=== PATIENT | female | born 1960 | race Caucasian/White ===

== ENCOUNTER 2017-10-19 19:17 | Inpatient (IN) | payer OTHER ==
[~2017-10-19] VITALS: Ht 165.1 cm; Wt 55.8 kg
--- NOTE | 2017-10-19 20:07 | ED GENERAL ADULT ---
History of Present Illness General Chief Complaint: General Adult Stated Complaint: SIB MD BARRETO HIGH BP, DAVIS X 2 WEEKS, EAR PAIN Source: patient Exam Limitations: no limitations Vital Signs & Intake/Output Vital Signs & Intake/Output Vital Signs Date Time Temp Pulse Resp B/P B/P Pulse O2 O2 Flow FiO2 Mean Ox Delivery Rate 10/20 0159 98.2 58 18 142/76 96 Room Air 10/20 0147 98.2 58 18 142/76 10/20 0118 97.1 50 20 161/74 95 Room Air 10/19 2142 56 138/64 10/19 1939 98.8 62 16 199/117 97 Room Air Allergies Coded Allergies: acetaminophen (From DARVOCET-N 100) (UNKNOWN 10/19/17) irbesartan (UNKNOWN 10/19/17) meperidine (UNKNOWN 10/19/17) propoxyphene (From DARVOCET-N 100) (UNKNOWN 10/19/17) Triage Note: PT REFERRED TO ED FROM DR CABRAL OFFICE FOR C/O SEVERE HEADACHE, MUFFLED HEARING X 2 WEEKS. WAS SCHEDULED FOR OUT PT HEAD CT WHICH SHE FAILED TO HAVE DONE. BP ELEVATED 199/117 IN TRIAGE. ELEVATED IN MD OFFICE WELL. DENIES VISUAL CHANGES. ALSO C/O NECK PAIN. FACIAL SYMMETRY AND BILATERAL EQUAL HAND GRASP PRESENT IN TRIAGE. Triage Nurses Notes Reviewed? yes HPI: This is a 49-year-old female with history of hypertension, hyperlipidemia, anxiety, chronic back pain, presented to the emergency department with 10 days of severe headache and neck pain. Patient states that the pain started abruptly about 10 days ago while she was with her father in the hospital. She describes the pain as severe, the worst headache of her life, diffuse, associated with photophobia and nausea with vomiting initially. Since that time the pain is been unresponsive to OTC medications including Excedrin and ibuprofen. She was also tried on a Medrol Dosepak by her PMD. She denies any fever or chills or visual disturbance or lightheadedness or dizziness or confusion. She has had no sick contacts no recent travel or trauma or illness otherwise. (Jose Manuel PEREZ,Jalil) Past History Travel History Traveled to [place] past 21 day No Medical History Any Pertinent Medical History? see below for history Cardiovascular: hypertension, hyperlipidemia Gastrointestinal: GERD Musculoskeletal: pain management Psychiatric: anxiety Surgical History Surgical History: non-contributory Psychosocial History What is your primary language Yemeni Tobacco Use: Current Daily Use Daily Tobacco Use Amount/Type: => 5 Cigarettes daily ETOH Use: heavy use Family History Hx Contributory? No (Jalil Richard MD) Review of Systems Review of Systems Constitutional: Reports: no symptoms. EENTM: Reports: see HPI. Respiratory: Reports: no symptoms. Cardiovascular: Reports: no symptoms. GI: Reports: no symptoms. Neurological/Psychological: Reports: see HPI. All Other Systems: Reviewed and Negative (Jalil Richard MD) Physical Exam Physical Exam General Appearance: well developed/nourished, no apparent distress, alert, awake , anxious, mild distress Comments: Mildly distressed 49-year-old woman, severe discomfort. Positive nuchal rigidity. Negative Kernig and Brudzinski sign. Eyes are PERRLA, extraocular muscles intact, cranial nerves II through XII intact, no focal neurologic deficits on sensory or motor exam. No noted discoordination. She is alert and oriented 4. GCS 15. Cardiopulmonary exam within normal limits. Abdominal exam benign. Extremity exam benign. Core Measures ACS in differential dx? No CVA/TIA Diagnosis: No Sepsis Present: No Sepsis Focused Exam Completed? No (Jalil Richard MD) Progress Differential Diagnoses I considered the following diagnoses in my evaluation of the patient: Some concern for subarachnoid hemorrhage in this patient given exam, history, and presentation. Also concern for meningitis, however bacterial meningitis of 10 day duration would be highly unlikely. Could be primary headache such as tension headache or migraine. Low suspicion for acute mass effect lesion given history and exam features. Encephalitis is possible, as is giant cell arteritis. Plan of Care: Orders Procedure Date/time Status CBC WITHOUT DIFFERENTIAL 10/21 599 Active BASIC ELECTROLYTES PLUS BUN&CR 10/21 599 Active Regular Diet 10/20 B Active Weight 10/21 147 Active Vital Signs 10/21 147 Active Teach/Educate 10/21 147 Active Pain Treatment and Response 10/21 147 Active Nutritional Intake, Monitor 10/21 147 Active Isolation 10/21 147 Active Intake & Output 10/21 147 Active Patient Care Conference 10/21 147 Active Activity/Ambulation 10/21 147 Active Intake & Output 10/20 117 Active Pathway - chart 10/20 8 Active House Staff 10/20 8 Active Patient Data 10/20 8 Active Code Status 09/05 0009 Active Lab Add-on Test 10/20 UNK Active VTE Mechanical Prophylaxis 10/20 UNK Active CIWA 10/20 UNK Active MISSING MEDICATION FORM 10/20 UNK Active Saline Lock 10/19 2351 Active Misc Message 10/19 2351 Active ED Holding Orders 10/19 235 Active Admit to inpatient 10/19 235 Active Vital Signs 10/19 235 Active Code Status 10/19 2351 Complete LYME-CEREBROSPINAL FLUID Ref$ 10/19 2244 Active HERPES SIMPLEX VIRUS CSF 10/19 2244 Active Add-on Test (ER Only) 10/20 2055 Active Saline Lock 10/20 2047 Active ED- NURSING MISC 10/20 2047 Active CEREBROSPINAL FLUID CULTURE 10/20 2047 Active CYTOLOGY SPECIMEN 10/20 2047 Active CSF TOTAL PROTEIN 10/20 2047 Complete CEREBROSPINAL FL CELL CT 10/20 2047 Complete CSF GLUCOSE 10/20 2047 Complete HIGH SENSITIVITY CRP 10/20 2027 Complete WESTERGREN SED RATE 10/20 2027 Complete PROTHROMBIN TIME 10/20 2019 Complete COMPREHENSIVE METABOLIC PANEL 10/20 2019 Complete CBC WITHOUT DIFFERENTIAL 10/20 2019 Complete Current Medications Sig/Neelima Start time Last Medication Dose Stop Time Status Admin Acyclovir 800 MG Q8H 10/20 0030 AC 10/20 (Zovirax) 0110 Dextrose/Water 250 ML (D5W) Laboratory Tests 10/19/172244: CSF Glucose 43, CSF Total Protein 131 H 10/19/172244: Lymphocytes 91, % Normal PMNs 2, Misc Hematology Test , Ref Lab Test Result Pending, CSF WBC 31 *H, CSF RBC 352 H, CSF Comment , Lyme Specimen Source Pending, Lyme Disease DNA (PCR) Pending, CMV Specimen Source Pending, CMV DNA PCR log IU/mL Pending, CMV DNA PCR IU/mL Pending, Herpes Simplex Source Pending, HSV I DNA PCR Pending, HSV II DNA PCR Pending 10/19/172043: C-React Prot High Sens Cancelled, ESR Westergren Cancelled 10/19/172027: Anion Gap 8, Estimated GFR > 60, BUN/Creatinine Ratio 25.0, Glucose 93, Calcium 9.7, Total Bilirubin 0.6, AST 16, ALT 19, Alkaline Phosphatase 90, C-React Prot High Sens 0.2 L, Total Protein 6.7, Albumin 4.2, Globulin 2.5, Albumin/Globulin Ratio 1.7, PT 11.3, INR 1.04, CBC w Diff NO MAN DIFF REQ, RBC 4.27, MCV 94.5, MCH 32.2 H, MCHC 34.1, RDW 13.7, MPV 7.2 L, Gran % 52.4, Lymphocytes % 37.6, Monocytes % 7.9, Eosinophils % 1.6, Basophils % 0.5, Absolute Granulocytes 4.6, Absolute Lymphocytes 3.3, Absolute Monocytes 0.7 H, Absolute Eosinophils 0.1, Absolute Basophils 0, ESR [facility] 5 Microbiology 10/195 CENT N S: CSF Culture - RES 10/19 2244 CENT N S: Gram Stain - RES Plan for lumbar puncture with CSF studies, CTA head and neck, labs including ESR and CRP, pain control, reassessment. Lumbar puncture is performed with standard spinal needle following infiltration of 10 cc of 1% lidocaine. Patient placed in left lateral decubitus position, opening pressure 17; the L4-L5 space is utilized. Pressure dressing placed. Patient tolerates procedure well with no complications. CSF study consistent with viral meningitis. No indication for antibiotics at this time. Patient continues to be uncomfortable, will be admitted to medicine service for further management. Continue to await findings of CTA head and neck. CTA wet read shows likely incidental aneurysm with some possible vasospasm/ leptomeningeal enhancement. Radiologist recommends MRI/MRA for further characterization. Patient made aware of finding, on reassessment continues to have no acute neurologic deficits, particularly no deficits to the MCA territory on exam. Finding also discussed with on-call MOD. Care signed out to Dr. Reveles. Initial ED EKG: none (Jalil Richard MD) Departure Departure Time of Disposition: 0000 Disposition: STILL A PATIENT Condition: Stable Clinical Impression Primary Impression: Viral meningitis Secondary Impressions: Brain aneurysm Referrals: Anabela PEREZ,Jazmin (PCP/Family) Departure Forms: Customer Survey General Discharge Information Admission Note Spoke With: Nirmal Loredo MD Documentation of Exam: Documentation of any treatments & extenuating circumstances including Concerns Regarding Discharge (functional status, medication knowledge or non-compliance, living conditions, etc.) that warrant an admission rather than observation: IV acyclovir, MRI/MRA, pain control (Jalil Richard MD) PA/BLUEPRINT DUPLICATOR Co-Sign Statement Statement: ED Attending supervision documentation- [] I saw and evaluated the patient. I have also reviewed all the pertinent lab results and diagnostic results. I agree with the findings and the plan of care as documented in the PA's/BLUEPRINT DUPLICATOR's documentation. [x] I have reviewed the ED Record and agree with the MD's documentation. [] Additions or exceptions (if any) to the PAs/BLUEPRINT DUPLICATOR's note and plan are summarized below: [] (Anushka PEREZ,Vinny Palmer) Critical Care Note Critical Care Note Critical Care Time: non-applicable (Jose Manuel PEREZ,Jalil)
[2017-10-19 20:40] LABS: ABSOLUTE BASOPHIL COUNT 0 /CUMM (0.0-0.2); ABSOLUTE EOSINOPHIL COUNT 0.1 /CUMM (0.0-0.7); ABSOLUTE GRANULOCYTE CT 4.6 /CUMM (1.4-6.5); ABSOLUTE LYMPH COUNT 3.3 /CUMM (1.2-3.4); ABSOLUTE MONOCYTE COUNT 0.7 /CUMM (0.10-0.60); BASOPHIL % 0.5 % (0.0-2.0); EOSINOPHIL % 1.6 % (0-5); GRANULOCYTE % 52.4 % (42.2-75.2); HEMATOCRIT 40.3 % (37-47); MEAN CORPUSCULAR HGB 32.2 PG (27.0-31.0); MEAN CORPUSCULAR HGB CONC 34.1 G/DL (33.0-37.0); MEAN CORPUSCULAR VOLUME 94.5 FL (81.0-99.0); MEAN PLATELET VOLUME 7.2 FL (7.4-10.4); PLATELET COUNT 309 /CUMM (130-400); RBC DISTRIBUTION WIDTH 13.7 % (11.5-14.5); RED BLOOD CELL CT 4.27 /CUMM (4.20-5.40); WHITE BLOOD CELL COUNT 8.8 /CUMM (4.8-10.8)
[2017-10-19 20:49] LABS: PT 11.3 SEC (9.4-12.5)
--- NOTE | 2017-10-20 00:07 | History & Physical ---
Cheryl PEREZ,[facility] [place] 10/20/17 0006: General Information and HPI MD Statement: I have seen and personally examined MAURISIO SALINAS and documented this H&P. The patient is a 57 year old F who presented with a patient stated chief complaint of [headache, hearing changes]. Source of Information: patient Exam Limitations: clinical condition History of Present Illness: 57 yo F with PMH of hypertension, hyperlipidemia, anxiety, chronic back pain presented to the ED for evaluation of severe headache with neck pain. The patient states that her headache started approximately 10 days ago and describes it as the worst headache of her life, 10/10 in severity, diffuse associated with sensitivity to light and 'muffled hearing'. She tried OTC Eccedrin and ibuprofen without any relief. She visited her PCP this morning and was sent to the ER. She denies any fevers, chills, sore throat, cough, chest pain, shortness of breath but endorses chronic diarrhea. Allergies/Medications Allergies: Coded Allergies: acetaminophen (From DARVOCET-N 100) (UNKNOWN 10/19/17) irbesartan (UNKNOWN 10/19/17) meperidine (UNKNOWN 10/19/17) propoxyphene (From DARVOCET-N 100) (UNKNOWN 10/19/17) Home Med list Valacyclovir HCl (Valtrex) 1,000 MG TABLET 1,000 MG PO TID viral meningitis Past History Travel History Traveled to [place] past 21 day No Medical History Cardiovascular: hypertension, hyperlipidemia Gastrointestinal: GERD Musculoskeletal: pain management Psychiatric: anxiety Surgical History Surgical History: non-contributory Past Family/Social History Psychosocial History ETOH Use: heavy use Review of Systems Review of Systems Constitutional: Denies: chills, fever. EENTM: Reports: visual changes, hearing changes. Cardiovascular: Denies: chest pain. Respiratory: Reports: no symptoms. GI: Reports: diarrhea. Genitourinary: Reports: no symptoms. Musculoskeletal: Reports: muscle pain, neck pain. Neurological/Psychological: Reports: headache. Exam & Diagnostic Data Last 24 Hrs of Vital Signs/I&O Vital Signs Date Time Temp Pulse Resp B/P B/P Pulse O2 O2 Flow FiO2 Mean Ox Delivery Rate 10/19 2142 56 138/64 10/19 1939 98.8 62 16 199/117 97 Room Air Physical Exam General Appearance Alert, Oriented X3, Cooperative, Severe Distress Skin No Rashes, No Breakdown Skin Temp/Moisture Exam: Warm/Dry Sepsis Skin Exam (color): Normal for Ethnicity HEENT Atraumatic Cardiovascular Normal S1, Normal S2, No Murmurs Lungs Clear to Auscultation, Normal Air Movement Abdomen Soft, No Tenderness Neurological Normal Speech, complete neuro could not be performed due to patient 's clinical condition Extremities No Edema Assessment/Plan Assessment: 57 yo F with PMH of hypertension, hyperlipidemia, anxiety, chronic back pain presented to the ED for evaluation of severe headache with neck pain. I performed a lumbar puncture in the ER which revealed a white count of 31 and total protein of 131 suggestive of viral meningitis. Further CSF studies are pending at this time. A CTA head and neck was performed which showed leptomeningeal enhancement suggestive of meningitis. A 4mm aneurysm was found which is likely an incidental finding. Assesment: 1. Meningitis - likely of viral origin 2. Severe head and neck pain 3. History of Hypertension and hyperlipidemia Plan: * Admit patient to general medicine * Start IV Acyclovir 800mg TID. * Will give one dose of dexamethasone 10mg. The patient is complaining of decreased hearing. Re-evaluate for additional need. * Follow CSF culture results. HSV, EBV, CMV, Lyme studies are requested. * With her history of diarrhea, enterovirus is certainly a concern which will not reveal on CSF studies. * ID consult * Please obtain medication list in am as the patient is unable to provide it at this time. * Diet: Regular * DVT Prophylaxis: ALPS only for now. Would observe for a day due to traumatic LP * Code: Full Code As Ranked By This Provider Problem List: 1. Viral meningitis Core Measures/Misc (11/01) Acute Coronary Syndrome ACS Diagnosis: No Congestive Heart Failure Congestive Heart Failure Diagnosis No Cerebrovascular Accident CVA/TIA Diagnosis: No VTE (View Protocol) VTE Risk Factors Age>40 No Mechanical VTE Prophylaxis d/t N/A MechProphylax Ordered Sepsis (View protocol) Sepsis Present: No If YES complete Sepsis Event Note If YES complete Sepsis Event Note Nirmal Loredo 10/20/17 0203: Core Measures/Misc (11/01) VTE (View Protocol) No VTE Pharm Prophylaxis d/t Other (had LP, use scds.) Sepsis (View protocol) If YES complete Sepsis Event Note If YES complete Sepsis Event Note Attending MD Review Statement Attending Statement Attending MD Statement: examined this patient, discuss w/resident/PA/MAIL SUPERINTENDENT, agreed w/resident/PA/MAIL SUPERINTENDENT Attending Assessment/Plan: Addendum by . Patient was seen and examined at bedside today (10/20/17 ) at 1am.. Reviewed the history physical done by the resident. Reviewed the past medical family, family, social history. ROS: 10 point system reviewed and negative except as described above. Exam: Alert awake oriented 3, Neck rigidity is present, rest of the neuro examination is normal. 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 - Effacement of the CSF in the right-sided temporal sulci and sylvian fissure with associated leptomeningeal enhancement on the postcontrast images. No hyperdensity is seen within the sulci to suggest acute subarachnoid hemorrhage related to the MCA aneurysm. Given the degree of leptomeningeal enhancement the imaging findings are concerning for meningitis. This is concordant with the reported lumbar puncture findings concerning for viral meningitis. Abrupt cut off of right MCA M2 branches without evidence of infarct at this time may reflect vasospasm. Brain MRI/MRA is recommended. a/p: #meningitis, Possibly viral : Patient has intractable headache and neck pain for the last 2 weeks. Also complaining popping sensation of her bilateral ears with decreased hearing sensation. LP studies reveal WBC count 31, lymphocyte predominant. Elevated RBC likely traumatic. CT findings as above. Treating as viral meningitis, giving acyclovir 3 times daily. Also give a dose of steroids. Putting on droplet isolation. ID consult in a.m. Advised to get viral cultures from CSF, bacterial cultures, also get HSV, lyme, cytomegalovirus, Gigi-Harris virus studies of CSF as well. Patient has some diarrhea other than that no other signs and symptoms suggest any source. Enteroviruses might be the likely cause. If the vital studies are negative, to consider lymphatic meningitis as well. #Headache-due to meningitis. Give Tylenol. If needed can use NSAIDs. #4 mm aneurysm at right MCA bifurcation. It is not clinically significant size but given RBC in CSF can consider neuro evaluation. #Chronic medical issues: Hypertension, hyperlipidemia, anxiety, GERD are stable. Continue with home medications. Reviewed with the resident. Agree with the rest of the plan as per resident's note. Dr.Ravinder Corey MD. Hospitalist. Pager: [phone], cell: [phone].
--- NOTE | 2017-10-20 00:11 | CT SCAN REPORT ---
EXAMINATION: CT ANGIOGRAM NECK WITH CONTRAST CT ANGIOGRAM BRAIN WITH CONTRAST CLINICAL INFORMATION: Concern for subarachnoid hemorrhage/dissection. Severe headache and neck pain. COMPARISON: None. TECHNIQUE: Initial noncontrast head CT was performed. Test bolus sequences followed by intravenous administration 95 mL of Optiray 320. Helical imaging was performed in the axial plane from the thoracic inlet to the skull vertex. Delayed postcontrast imaging of the head was also performed. The data was processed at the magnetic resonance technologist workstation for generation of MIP sequences. Angled MIPs and volume rendered reformatted images were also generated at an offline 3D workstation. Stenoses are assessed in accordance with NASCET criteria unless otherwise indicated. DLP: 2578 mGy-cm FINDINGS: Head CT: The CSF right-sided temporal sulci and sylvian fissure are effaced compared with the contralateral side. No hyperdensity is seen within the sulci and basilar cisterns to suggest subarachnoid hemorrhage. On the postcontrast images there is leptomeningeal enhancement within this region involving the right-sided temporal lobe sulci. No discrete parenchymal enhancement is seen. The ventricles are normal in size without evidence of hydrocephalus. The visualized paranasal sinuses and mastoid air cells are clear. A calcified tricholemmal cyst is noted in the left frontal scalp. Neck CTA: There is a three-vessel, left-sided aortic arch. There is no significant stenosis of the great vessel origins. There are mild atheromatous changes of the bilateral carotid bifurcations without significant stenosis. There is mild stenosis of the left vertebral artery origin. Head CTA: There is a 4 mm aneurysm the right MCA bifurcation (series 3 image 424). Just distal to the MCA bifurcation there is abrupt cut off of M2 segments and asymmetric right-sided MCA collaterals compared with the left. The ICA and the left MCA branches appear normal. The intradural vertebral arteries and basilar artery are normal. There is a normal right posterior communicating artery. ACAs are normal. The dural venous sinuses appear normal. Non-vascular findings: The visualized lung apices are clear. The cervical spine demonstrates multilevel degenerative changes. No mass or fluid collection is identified within the neck. 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 - Effacement of the CSF in the right-sided temporal sulci and sylvian fissure with associated leptomeningeal enhancement on the postcontrast images. No hyperdensity is seen within the sulci to suggest acute subarachnoid hemorrhage related to the MCA aneurysm. Given the degree of leptomeningeal enhancement the imaging findings are concerning for meningitis. This is concordant with the reported lumbar puncture findings concerning for viral meningitis. Abrupt cut off of right MCA M2 branches without evidence of infarct at this time may reflect vasospasm. Brain MRI/MRA is recommended. This critical result was discussed with Jalil Richard on 10/20/2017 12:00 AM, and it was ascertained that the content and urgency of the report was understood at the time of direct communication.
[2017-10-20 01:47] VITALS: BP 142/76
[2017-10-20 01:59] VITALS: BP 142/76
[2017-10-20 06:00] VITALS: BP 128/76
[2017-10-20 06:24] VITALS: BP 128/76
--- NOTE | 2017-10-20 08:10 | PN- Housestaff ---
Ken Boswell 10/20/17 0810: Subjective Follow-up For: Viral meningitis Subjective: Patient seen and examined at bedside. She is complaining of mild pain in neck. She is concerned to go home today, when I asked her why you having urge to go home she explained that her father is living alone and she needed to take care of him because she is his primary care person. I explained that her can take care of her father but she denies the fact and adamant to go home. Denies fever, chill, chest pain, palpitation, abdominal pain, diarrhea, constipation. Review of Systems Constitutional: Reports: see HPI. Objective Last 24 Hrs of Vital Signs/I&O Vital Signs Date Time Temp Pulse Resp B/P B/P Pulse O2 O2 Flow FiO2 Mean Ox Delivery Rate 10/20 0624 98.2 56 20 128/76 95 Room Air 10/20 0600 98.2 56 18 128/76 09/ 0159 98.2 58 18 142/76 96 Room Air 10/20 0147 98.2 58 18 142/76 09/ 0118 97.1 50 20 161/74 95 Room Air / 2142 56 138/64 Intake & Output 10/20 1600 09/05 0800 09/05 0000 Intake Total 436 820 7670 Output Total Balance 074 568 9186 Intake, IV 100 1000 Intake, Oral 480 120 Patient 123 lb Weight Weight Bed scale Measurement Method Physical Exam General Appearance: Alert, Oriented X3, Cooperative, No Acute Distress HEENT: Atraumatic, PERRLA, EOMI, Mucous Membr. moist/pink Cardiovascular: Regular Rate, Normal S1, Normal S2, No Murmurs Lungs: Clear to Auscultation, Normal Air Movement Abdomen: Normal Bowel Sounds, Soft, No Tenderness Neurological: Normal Gait, Normal Speech, Strength at 5/5 X4 Ext, Normal Tone, Sensation Intact, Cranial Nerves 3-12 NL, Reflexes 2+ Assessment/Plan Assessment: 57 yo F with PMH of hypertension, hyperlipidemia, anxiety, chronic back pain presented to the ED for evaluation of severe headache with neck pain. At the time presentation to emergency department her vitals and labs are given below. 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 - Effacement of the CSF in the right-sided temporal sulci and sylvian fissure with associated leptomeningeal enhancement on the postcontrast images. -concordant with the reported lumbar puncture findings concerning for viral meningitis. Abrupt cut off of right MCA M2 branches without evidence of infarct at this time may reflect vasospasm. Brain MRI/MRA is recommended. -Radiologist recommended MRI brain Assesment/plan: 1. Meningitis - likely of viral origin 2. Severe head and neck pain 3. History of Hypertension and hyperlipidemia Plan: -. Meningitis - likely of viral origin: -CSF findings suggesting viral meningitis -IV acyclovir started -Renal function is normal -SCARLETT Cain recommendation appreciated -ID doctor recommended acyclovir orally if the patient want to discharge -But the patient having no fever and she is concerned about hypertension associated changes in the brain She recommended neurology recommendation -Radiology recommended MRI to workup for ischemia or hemorrhages in the brain -The patient counseled by attending, resident, bottle caser about further workup and stay here at hospital -In spite of counseling many time the patient wanted to go AGAINST MEDICAL ADVICE -Patient explained about the risk of going home and without further workup but she still wanted to go home -Patient went home AGAINST MEDICAL ADVICE History of hypertension: -Patient taking hypertensive medication at home -If she will stay in hospital he would continue antihypertensive medication -Patient is full code Problem List: 1. Brain aneurysm 2. Viral meningitis Pain Ratin Pain Location: Neck Pain Goal: Remain pain free Pain Plan: Pain management pathway Tomorrow's Labs & Rationales: No labs Александр Lynch 10/20/17 1625: Attending MD Review Statement Attending Statement Attending MD Statement: examined this patient, discuss w/resident/PA/[employer] OWNER, agreed w/resident/PA/[employer] OWNER, discussed with family, reviewed EMR data (avail), discussed with nursing, discussed with case mgmt Attending Assessment/Plan: ? Viral meningitis- pt signed out AMA. Pt refused to get anymore workup like MRI /MRA and did not want to talk with the neurologist here - Dr Stark and I spoke with the pt and pts at bedside but pt wants to leave. Appreciated ID consult. Pt was given prescription for valtrex. Pt understands the risks of signing out AMA which are not limited to .
--- NOTE | 2017-10-20 08:49 | PN- Student ---
Subjective Subjective: The patient is a 57 y/o female with a PMH of HTN, HLD, anxiety, and chronic back pain. She presented to the ED with severe headache associated with nausea and photobia; the patient states shes had these symptoms for the last 2 weeks. Allergies: * acetaminophen (From DARVOCET-N 100) (UNKNOWN 10/19/17) * irbesartan (UNKNOWN 10/19/17) * meperidine (UNKNOWN 10/19/17) * propoxyphene (From DARVOCET-N 100) (UNKNOWN 10/19/17) Medical, Social, Surgical, Family histories * The patient was exhuasted from answering questions and I was not able to complete thse components of the exam. Objective Objective: Heart & Lung Exam: * The patient was exhuasted from answering questions and I was not able to complete thse components of the exam. Brudzskinski was negative on examination. LP showed elevated levels of WBC's, RBC's, and protein in the setting of normal glucose levels. CSF cultures are pending Head CT showed leptomeningeal enhancement suggestive of meningitis. An incedental aneurysm of the patients right MCA (4mm) was also found. Results Results: Laboratory Tests 10/19/172244: CSF Glucose 43, CSF Total Protein 131 H 10/19/172244: Lymphocytes 91, % Normal PMNs 2, [facility] Test , Ref Lab Test Result Pending, CSF WBC 31 *H, CSF RBC 352 H, CSF Comment , Lyme Specimen Source Pending, Lyme Disease DNA (PCR) Pending, CMV Specimen Source Pending, CMV DNA PCR log IU/mL Pending, CMV DNA PCR IU/mL Pending, Herpes Simplex Source Pending, HSV I DNA PCR Pending, HSV II DNA PCR Pending 10/19/172043: C-React Prot High Sens Cancelled, ESR Westergren Cancelled 10/19/172027: Anion Gap 8, Estimated GFR > 60, BUN/Creatinine Ratio 25.0, Glucose 93, Calcium 9.7, Total Bilirubin 0.6, AST 16, ALT 19, Alkaline Phosphatase 90, C-React Prot High Sens 0.2 L, Total Protein 6.7, Albumin 4.2, Globulin 2.5, Albumin/Globulin Ratio 1.7, PT 11.3, INR 1.04, CBC w Diff NO MAN DIFF REQ, RBC 4.27, MCV 94.5, MCH 32.2 H, MCHC 34.1, RDW 13.7, MPV 7.2 L, Gran % 52.4, Lymphocytes % 37.6, Monocytes % 7.9, Eosinophils % 1.6, Basophils % 0.5, Absolute Granulocytes 4.6, Absolute Lymphocytes 3.3, Absolute Monocytes 0.7 H, Absolute Eosinophils 0.1, Absolute Basophils 0, ESR Westergren 5 Microbiology 10/19 2245 CENT N S: CSF Culture - RES 10/195 CENT N S: Gram Stain - RES Assessment/Plan Assessment: The patient is a 57 y/o female with a PMH of HTN, HLD, anxiety, and chronic back pain. She presented to the ED with severe headache associated with nausea and photobia; the patient states shes had these symptoms for the last 2 weeks. Plan: LP showed elevated levels of WBC's, RBC's, and protein in the setting of normal glucose levels. * patient was put on IV Acyclovir 800mg TID for suspected viral meningitis Head & Neck pain * patient was given morphine to help her sleep
--- NOTE | 2017-10-20 09:28 | Patient Discharge Instructions ---
Discharge Instructions General Discharge Information You were seen/treated for: Viral meningitis Watch for these problems: Fever, headache, chest pain, fever,chills, neck stiffnes,blood in urine, abdominal pain Special Instructions: During our clinical interaction regarding patient's decision to leave against medical advice (AMA), patient fully acknowledged the risk of certain decision and fully understood with full capacity about his conditions, and the options of the treatment, and if no treatment and its consequence, including clinical deterioration of current medical conditions and/or other underlying conditions, and even . The benefits of admission have also been explained, including the availability and proximity of nurses, physicians, monitoring, diagnostic testing, treatments. Patient had been well expalined about his current medical/surgical conditions and still decided to leave AMA. Patient had the opportunity to ask questions about their medical condition. Patient acknowledged all up-to-date medical/lab/imaging results/diagnosis during current hospital stay, and had signed the "Leaving AMA" documents witnessed by nursing staff at bedside. Discharge recommendations were provided at bedside and confirmed that patient had all necessary medications at home and will be compliant with his home meds per physicians' advices. Patient was advised and acknowledged that he was treated to the extent that they would allow and knows that they may return for care at any time. Follow-up has been discussed and arranged with Attending doctor. Activity Activity Self Limited: Yes Acute Coronary Syndrome Inclusion Criteria At DC or during hospital stay patient has or had the following: ACS DIAGNOSIS No Discharge Core Measures Meds if any: Prescribed or Continued at Discharge Meds if any: NOT Prescribed or Continued at Discharge Congestive Heart Failure Inclusion Criteria At DC or during hospital stay patient has or had the following: CHF DIAGNOSIS No Discharge Core Measures Meds if any: Prescribed or Continued at Discharge Meds if any: NOT Prescribed or Continued at Discharge Cerebrovascular accident Inclusion Criteria At DC or during hospital stay patient has or had the following: CVA/TIA Diagnosis No Discharge Core Measures Meds if any: Prescribed or Continued at Discharge Meds if any: NOT Prescribed or Continued at Discharge Venous thromboembolism Inclusion Criteria VTE Diagnosis No VTE Type NONE VTE Confirmed by (Test) NONE Discharge Core Measures - Per Current guidelines, there needs to be overlap - treatment for the first 5 days of Warfarin therapy. - If discharged on Warfarin prior to 5 days of - overlap therapy, the patient will need to be - assessed for post discharge needs including - *Post discharge parental anticoagulation - *Warfarin and/or parental anticoagulation education - *Follow up date to check INR post discharge At least 5 days overlap therapy as Inpatient No Meds if any: Prescribed or Continued at Discharge Note: Overlap Therapy is Warfarin and Anticoagulant Meds if any: NOT Prescribed or Continued at Discharge
--- NOTE | 2017-10-20 12:13 | Cons- Infect Disease ---
General Information and HPI Consulting Request Date of Consult: 10/20/17 Requested By: Александр Lynch MD Reason for Consult: viral meningitis Source of Information: patient Exam Limitations: no limitations History of Present Illness: 57 y/o F with PMH of hypertension, hyperlipidemia, anxiety, chronic back pain presented to the ED on 10/19 for evaluation of severe headache and neck pain. The patient states that her headache started approximately 10 days ago and describes it as the worst headache of her life, 10/10 in severity, diffuse associated with sensitivity to light and 'muffled hearing'. She tried OTC ibuprofen without relief. She denies any fevers, chills, sore throat, cough, chest pain, shortness of breath but endorses chronic diarrhea. To mosquito or tick bites; disd not consume unpasteurized products. Denies fever or chills. She is asking about being discharged. Allergies/Medications Allergies: Coded Allergies: acetaminophen (From DARVOCET-N 100) (UNKNOWN 10/19/17) irbesartan (UNKNOWN 10/19/17) meperidine (UNKNOWN 10/19/17) propoxyphene (From DARVOCET-N 100) (UNKNOWN 10/19/17) Current Medications: Current Medications Sig/Neelima Start time Last Medication Dose Route Stop Time Status Admin Acetaminophen 650 MG ONCE ONE 10/20 1015 CAN PO 10/20 1016 Acetaminophen 0 .STK-MED ONE 10/20 1011 DC PO Acetaminophen 650 MG ONCE ONE 10/20 0215 DC PO 10/20 0216 Acetaminophen 650 MG Q6P PRN 10/20 0015 DC PO Acetaminophen 0 .STK-MED ONE 10/19 2052 DC PO Acetaminophen 650 MG ONCE ONE 10/19 2044 DC 10/19 PO 10/19 Acyclovir 800 MG Q8H 10/20 0030 AC 10/20 Dextrose/Water 250 ML IV 0801 Dexamethasone 10 MG ONCE ONE 10/20 0145 DC 10/20 IV 10/20 145 0300 Diphenhydramine HCl 0 .STK-MED ONE 10/19 2052 DC .ROUTE Diphenhydramine HCl 25 MG ONCE ONE 10/19 204 DC 10/19 IV 10/19 Ibuprofen 0 .STK-MED ONE 10/20 1016 DC PO Ibuprofen 400 MG ONCE ONE 10/20 1015 DC 10/20 PO 10/20 1016 1020 Ketorolac 0 .STK-MED ONE 10/20 010 DC Tromethamine .ROUTE Ketorolac 30 MG ONCE ONE 10/20 0100 DC 10/20 Tromethamine IV 10/20 100 0105 Ketorolac 0 .STK-MED ONE 10/19 2052 DC Tromethamine .ROUTE Ketorolac 30 MG ONCE ONE 10/19 2044 DC 10/19 Tromethamine IV 10/19 Lidocaine 20 ML ONCE ONE 10/19 2214 DC 10/19 ID 10/19 Lidocaine 0 .STK-MED ONE 10/19 2208 DC .ROUTE Metoclopramide HCl 0 .STK-MED ONE 10/19 2052 DC .ROUTE Metoclopramide HCl 10 MG ONCE ONE 10/19 2044 DC 10/19 IV 10/19 Morphine Sulfate 2 MG ONCE ONE 10/20 0245 DC IV 10/20 024 Morphine Sulfate 0 .STK-MED ONE 10/20 023 DC .ROUTE Morphine Sulfate 2 MG ONCE ONE 10/20 0215 DC 10/20 IV 10/20 021 0230 Morphine Sulfate 2 MG ONCE ONE 10/19 2345 DC IV 10/19 234 Sodium Chloride 1,000 ML BOLUS ONE 10/19 2044 DC 10/19 IV 10/19 Past History Travel History Traveled to [place] past 21 day No Medical History Blood Transfusion Hx: No Neurological: NONE EENT: NONE Cardiovascular: hypertension, hyperlipidemia Respiratory: NONE Gastrointestinal: GERD Hepatic: NONE Renal: NONE Musculoskeletal: pain management Psychiatric: anxiety Endocrine: NONE Blood Disorders: NONE Cancer(s): NONE [employer]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 Home Smoking Status: Current Everyday Smoker ETOH Use: heavy use Review of Systems Comments 12 points reviewed as noted, otherwise negative. Exam & Diagnostic Data Last 24 Hrs of Vital Signs/I&O Vital Signs Date Time Temp Pulse Resp B/P B/P Pulse O2 O2 Flow FiO2 Mean Ox Delivery Rate 10/21 623 98.2 56 20 128/76 95 Room Air 10/20 0600 98.2 56 18 128/76 10/20 0159 98.2 58 18 142/76 96 Room Air 10/20 0147 98.2 58 18 142/76 10/20 0118 97.1 50 20 161/74 95 Room Air 10/19 2142 56 138/64 10/19 1939 98.8 62 16 199/117 97 Room Air Intake & Output 10/20 1600 10/20 0800 10/20 0000 Intake Total 220 1000 Output Total Balance 220 1000 Intake, IV 100 1000 Intake, Oral 120 Patient 123 lb Weight Weight Bed scale Measurement Method Physical Exam Other Physical Findings: General Appearance Alert, Oriented X3, Cooperative, Severe Distress Skin No Rash HEENT Atraumatic, sclera anicteric Neck: No OSCAR, supple Cardiovascular Normal S1, Normal S2, No Murmurs Lungs Clear to Auscultation, Normal Air Movement Abdomen Soft, No Tenderness Neurological Normal Speech, A&O x3, non focal, no neck stiffness Extremities No Edema Last 24 Hours of Lab Results: Laboratory Tests 10/20 10/19 10/19 10/19 1035 2245 2245 2044 Chemistry C-React Prot High Sens Cancelled Hematology Lymphocytes (%) 91 % Normal PMNs (%) 2 ESR Westergren Cancelled Misc Hematology Test (%) Miscellaneous Ref Lab Test Result Pending Other Body Source CSF WBC (0 - 5 /CUMM) 31 *H CSF RBC (-0 /CUMM) 352 H CSF Comment CSF Glucose (40 - 70 mg/dL) 43 CSF Total Protein (12 - 60 mg/dL) 131 H Serology Lyme Specimen Source Pending Lyme Disease DNA (PCR) Pending CMV Specimen Source Pending CMV DNA PCR log IU/mL Pending CMV DNA PCR IU/mL Pending Herpes Simplex Source Pending HSV I DNA PCR Pending HSV II DNA PCR Pending Toxicology Acetaminophen Cancelled 10/20 2027 Chemistry Sodium (137 - 145 mmol/L) 136 L Potassium (3.5 - 5.1 mmol/L) 3.9 Chloride (98 - 107 mmol/L) 104 Carbon Dioxide (22 - 30 mmol/L) 25 Anion Gap (5 - 16) 8 BUN (7 - 17 mg/dL) 15 Creatinine (0.5 - 1.0 mg/dL) 0.6 Estimated GFR (>60 ml/min) > 60 BUN/Creatinine Ratio (7 - 25 %) 25.0 Glucose (65 - 99 mg/dL) 93 Calcium (8.4 - 10.2 mg/dL) 9.7 Total Bilirubin (0.2 - 1.3 mg/dL) 0.6 AST (14 - 36 U/L) 16 ALT (9 - 52 U/L) 19 Alkaline Phosphatase (<127 U/L) 90 C-React Prot High Sens (1.0 - 3.0 mg/L) 0.2 L Total Protein (6.3 - 8.2 g/dL) 6.7 Albumin (3.5 - 5.0 g/dL) 4.2 Globulin (1.9 - 4.2 gm/dL) 2.5 Albumin/Globulin Ratio (1.1 - 2.2 %) 1.7 Coagulation PT (9.4 - 12.5 SEC) 11.3 INR (0.90 - 1.19) 1.04 Hematology CBC w Diff NO MAN DIFF REQ WBC (4.8 - 10.8 /CUMM) 8.8 RBC (4.20 - 5.40 /CUMM) 4.27 Hgb (12.0 - 16.0 G/DL) 13.8 Hct (37 - 47 %) 40.3 MCV (81.0 - 99.0 FL) 94.5 MCH (27.0 - 31.0 PG) 32.2 H MCHC (33.0 - 37.0 G/DL) 34.1 RDW (11.5 - 14.5 %) 13.7 Plt Count (130 - 400 /CUMM) 309 MPV (7.4 - 10.4 FL) 7.2 L Gran % (42.2 - 75.2 %) 52.4 Lymphocytes % (20.5 - 51.1 %) 37.6 Monocytes % (1.7 - 9.3 %) 7.9 Eosinophils % (0 - 5 %) 1.6 Basophils % (0.0 - 2.0 %) 0.5 Absolute Granulocytes (1.4 - 6.5 /CUMM) 4.6 Absolute Lymphocytes (1.2 - 3.4 /CUMM) 3.3 Absolute Monocytes (0.10 - 0.60 /CUMM) 0.7 H Absolute Eosinophils (0.0 - 0.7 /CUMM) 0.1 Absolute Basophils (0.0 - 0.2 /CUMM) 0 ESR Westergren (0 - 20 MM) 5 Last 24 Hours of Aric Results: SPEC #: [id number] EUFEMIA: 10/19/17 STATUS: RES RECD: 10/19/[address]: Jalil Richard MD SOURCE: CENT N S ENTR: 10/19/17 [facility] DR: Anabela PEREZ,Jazmin SPDESC: CSF ORDERED: CSF CULTURE COMMENT: 2CC OF YELLOW CLEAR CSF RECEIVED IN TUBE #2 Procedure Result > GRAM STAIN Final 10/20/17 WHITE BLOOD CELLS NONE OTHER NO ORGANISMS SEEN > CSF CULTURE Preliminary 10/20/17 NO GROWTH AFTER 1 DAY Diagnostic Data Recent Imaging Findings: CTA IMPRESSION: - 4 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 - Effacement of the CSF in the right-sided temporal sulci and sylvian fissure with associated leptomeningeal enhancement on the postcontrast images. No hyperdensity is seen within the sulci to suggest acute subarachnoid hemorrhage related to the MCA aneurysm. Given the degree of leptomeningeal enhancement the imaging findings are concerning for meningitis. This is concordant with the reported lumbar puncture findings concerning for viral meningitis. Abrupt cut off of right MCA M2 branches without evidence of infarct at this time may reflect vasospasm. Brain MRI/MRA is recommended. This critical result was discussed with Jalil Richard on 10/20/2017 12:00 AM, and it was ascertained that the content and urgency of the report was understood at the time of direct communication. DICTATED BY: Paul De MD DATE/TIME DICTATED:10/19/172330 [employer] ST[employer]:DAILY DATE/TIME TRANSCRIBED:10/19/172330 Assessment/Plan Assessment/Plan Impression: 57 y/o F with PMH of hypertension, hyperlipidemia, anxiety, chronic back pain admitted on 10/19 with severe DAVIS; eval viral meningitis (serology for herpetic viruses and Lyme pnd); found to have on CT of the head "4 mm aneurysm at the right MCA bifurcation and effacement of the CSF in the right-sided temporal sulci and sylvian fissure, with associated leptomeningeal enhancement on the postcontrast images". Patient clinically improved while treated w/ iv acyclovir; denies headache. Suggestion: 1. F/U serology results; once ready for discharge oral Valtrex 1000 mg po tid x7 d. 2. F/u radiology recom regarding obtaining MRI/MRA. 3. Neurology eval. Consult Acknowledgment - Thank you for your consult request.
--- NOTE | 2017-10-20 12:55 | Discharge Summary ---
Hospital Course Allergies: Coded Allergies: acetaminophen (From DARVOCET-N 100) (UNKNOWN 10/19/17) irbesartan (UNKNOWN 10/19/17) meperidine (UNKNOWN 10/19/17) propoxyphene (From DARVOCET-N 100) (UNKNOWN 10/19/17)
[2017-10-20] MEDS ORDERED: VALTREX1000 MG PO ×2 (13:03→13:55)
--- NOTE | 2017-10-20 13:56 | Event Note ---
Event Note Event Note: During our clinical interaction regarding patient's decision to leave against medical advice (AMA), patient fully acknowledged the risk of certain decision and fully understood with full capacity about her conditions as being outline on the CTA head with possible bleeding that she might need further evaluation by MRI/MRA, and the options of the treatment, and if no treatment and its consequence, including clinical deterioration of current medical conditions and/ or other underlying conditions, and even . The benefits of admission have also been explained, including the availability and proximity of nurses, physicians, monitoring, diagnostic testing, treatments. Patient had been well expalined about his current medical/surgical conditions and still decided to leave AMA. Patient had the opportunity to ask questions about their medical condition. Patient acknowledged all up-to-date medical/lab/imaging results/diagnosis during current hospital stay, and had signed the "Leaving AMA" documents witnessed by nursing staff at bedside. Discharge recommendations were provided at bedside and confirmed that patient had all necessary medications at home and will be compliant with his home meds per physicians' advices. Patient was advised and acknowledged that she was treated to the extent that patient would allow and knows that she may return for care at any time. Follow-up has been discussed and arranged with the attending physician.
== END 2017-10-20 14:14 | disposition left against medical advice (07) | DRG 76 ==
LOC: ERH 19:17 → 2NA 23:51 → ERHI 23:51 → ENRESERV 10-20 00:27 → 2NA 10-20 01:42 → ENPENDDIS 10-20 14:21
PROVIDERS: Student in an Organized Health Care Education/Training Program
DX: A87.9 Viral meningitis, unspecified (principal); E78.5 Hyperlipidemia, unspecified; F41.9 Anxiety disorder, unspecified; I10 Essential (primary) hypertension; G89.29 Other chronic pain; M54.9 Dorsalgia, unspecified; Z88.6 Allergy status to analgesic agent; Z88.8 Allergy status to other drugs, medicaments and biological substances; Z53.21 Procedure and treatment not carried out due to patient leaving prior to being seen by health care provider
CPT/HCPCS: 87070; 87205; 87529; 87801; ERO; 88305; 96361; 96374; 96375; G0480; J1100; J1200; J1885; J2001; J2765; J7060